=== PATIENT | female | born 1985 | race Caucasian/White ===

== ENCOUNTER 2017-02-03 10:23 | Emergency (ER) | payer SELFPAY ==
[~2017-02-03] VITALS: Ht 165.1 cm; Wt 70.3 kg
[2017-02-03 10:55] VITALS: BP 157/94
== END 2017-02-03 12:47 | disposition home or self-care (01) ==
LOC: ER 10:23
DX: K04.7 Periapical abscess without sinus (principal); F17.210 Nicotine dependence, cigarettes, uncomplicated

== ENCOUNTER 2017-03-28 17:11 | Inpatient (IN) | payer MEDICAID, OTHER ==
[~2017-03-28] VITALS: Ht 165.1 cm; Wt 74.2 kg
[2017-03-28 18:55] LABS: Basophils # (auto) 0 uL; Eosinophils # (auto) 0 uL; Lymphocytes # (auto) 0.6 uL; Mean Platelet Volume 8.8 fL (6.9-10.8); Neutrophils # (auto) 8.3 uL
[2017-03-28 18:57] LABS: Basophils % (auto) 0.4 % (0.0-2.0); Hematocrit 44.1 % (36.0-46.0); Hemoglobin 15.4 g/dL (12.2-16.2); Lymphocytes % (auto) 6.3 % (10.0-50.0); Mean Corpuscular Hemoglobin 35.7 pg (28.0-32.0); Mean Corpuscular Hgb Conc. 34.9 g/dL (32.0-36.0); Mean Corpuscular Volume 102.3 fL (80.0-100.0); Monocytes # (auto) 0.5 uL; Monocytes % (auto) 4.9 % (0.0-12.0); Neutrophils % (auto) 88.4 % (37.0-80.0); Nucleated Red Blood Cells % 0.5 %; Platelet Count (auto) 125 10^3/uL (140-450); Red Cell Distribution Width 12.1 % (11.8-14.3); White Blood Cell 9.4 10^3/uL (4.4-10.8)
[2017-03-28 19:12] LABS: Albumin 3.3 g/dL (3.4-5.0); BUN/Creatinine Ratio 15.1; Calcium 9.4 mg/dL (8.5-10.1); Potassium 4.2 mmol/L (3.5-5.1); Total Protein 8.5 g/dL (6.4-8.2)
[2017-03-28] MEDS ORDERED: SODIUM CHLORIDE 0.9% 1,000 ML IV ONE (20:11)
[2017-03-28] MEDS ORDERED: ONDANSETRON HCL 4 MG/2 ML VIAL IV ONE (20:15)
[2017-03-28] MEDS ORDERED: MORPHINE SULF INJ 2 MG/ML SYRINGE 1ML IV ONE (20:15)
[2017-03-28 22:36] LABS: Urine Blood Negative /uL (Negative); Urine Glucose Normal (Normal); Urine Ketone TRACE (Negative); Urine Mucus FEW (None Seen); Urine Nitrite Negative (Negative); Urine RBC 3 /hpf (0 - 4); Urine Squamous Epithelial Cell MOD /hpf (<5); Urine pH 6.5 (5.0-8.0)
[2017-03-28 22:44] LABS: Urine Bilirubin Negative (Negative); Urine Color AMBER (Yellow)
[2017-03-28] MEDS ORDERED: cefTRIAXone 1GM/50ML D5W 50 ML IV ONE (23:45)
[2017-03-29] MEDS: SODIUM CHLORIDE 0.9% 1,000 ML IV SCH ×3 (00:26→23:55)
[2017-03-29] MEDS: ONDANSETRON HCL 4 MG/2 ML VIAL IV PRN ×4 (00:34→20:30)
[2017-03-29] MEDS: MORPHINE SULF INJ 2 MG/ML SYRINGE 1ML IV PRN ×4 (00:34→13:10)
[2017-03-29] MEDS ORDERED: METH5TAB2 PO (04:07)
[2017-03-29 05:00] VITALS: BP 127/95
[2017-03-29 08:00] VITALS: BP 107/88
[2017-03-29 08:31] LABS: Basophils # (auto) 0 uL; Eosinophils # (auto) 0 uL; Red Cell Distribution Width 12.3 % (11.8-14.3)
[2017-03-29 08:32] LABS: Basophils % (auto) 0.2 % (0.0-2.0); Eosinophils % (auto) 0.9 % (0.0-7.0); Hematocrit 40.8 % (36.0-46.0); Lymphocytes # (auto) 0.9 uL; Lymphocytes % (auto) 17.7 % (10.0-50.0); Mean Corpuscular Hemoglobin 35.1 pg (28.0-32.0); Mean Corpuscular Hgb Conc. 34.3 g/dL (32.0-36.0); Mean Corpuscular Volume 102.4 fL (80.0-100.0); Monocytes # (auto) 0.3 uL; Neutrophils % (auto) 75.2 % (37.0-80.0); Nucleated Red Blood Cells % 0.9 %; Platelet Count (auto) 84 10^3/uL (140-450); White Blood Cell 5.3 10^3/uL (4.4-10.8)
[2017-03-29 08:59] LABS: Albumin 2.6 g/dL (3.4-5.0); BUN/Creatinine Ratio 21.7; Bilirubin, Total 1.4 mg/dL (0.2-1.0); Calcium 7.7 mg/dL (8.5-10.1); Potassium 3.5 mmol/L (3.5-5.1)
[2017-03-29 09:20] VITALS: BP 107/88
[2017-03-29 13:43] VITALS: BP 148/94
[2017-03-29] MEDS ORDERED: FAMOTIDINE 20 MG TAB PO ONE (15:30)
[2017-03-29 16:52] VITALS: BP 128/84
[2017-03-29] MEDS ORDERED: cefTRIAXone 1GM/50ML D5W 50 ML IV SCH (22:00)
[2017-03-29 22:29] VITALS: BP 123/84
[2017-03-30] VITALS (7 sets, daily range): BP systolic 98–147; BP diastolic 74–102
[2017-03-30 07:29] LABS: Albumin 2.3 g/dL (3.4-5.0); Bilirubin, Direct 0.8 mg/dL (0-0.2); Bilirubin, Total 1.3 mg/dL (0.2-1.0); Total Protein 6.5 g/dL (6.4-8.2)
[2017-03-30] MEDS: METHADONE HCL 10 MG TAB PO SCH (09:04)
[2017-03-30] MEDS: ONDANSETRON HCL 4 MG/2 ML VIAL IV PRN (09:09)
[2017-03-30] MEDS: SODIUM CHLORIDE 0.9% 1,000 ML IV SCH ×2 (09:09→21:19)
[2017-03-30] MEDS: FAMOTIDINE 20 MG TAB PO SCH (09:09)
[2017-03-31 05:00] VITALS: BP 147/90
[2017-03-31] MEDS: SODIUM CHLORIDE 0.9% 1,000 ML IV SCH (05:39)
[2017-03-31 06:47] LABS: Albumin 2.4 g/dL (3.4-5.0); BUN/Creatinine Ratio 11.4; Bilirubin, Total 1.3 mg/dL (0.2-1.0); Calcium 7.1 mg/dL (8.5-10.1); Potassium 3.2 mmol/L (3.5-5.1); Total Protein 6.8 g/dL (6.4-8.2)
[2017-03-31] MEDS: ONDANSETRON HCL 4 MG/2 ML VIAL IV PRN (07:58)
[2017-03-31] MEDS: METHADONE HCL 10 MG TAB PO SCH (07:59)
[2017-03-31 08:00] VITALS: BP 145/95
[2017-03-31 09:47] VITALS: BP 145/95
[2017-03-31] MEDS: FAMOTIDINE 20 MG TAB PO SCH (10:06)
[2017-03-31 13:11] VITALS: BP 137/92
== END 2017-03-31 14:15 | disposition home or self-care (01) | DRG 54 ==
LOC: ER 17:11 → OVERFLOW 17:12 → WEST WING 03-29 03:38
PROVIDERS: ADMIT Nurse Practitioner Family; ATTEND Internal Medicine
DX: G43.A1 Cyclical vomiting, in migraine, intractable (principal); R16.2 Hepatomegaly with splenomegaly, not elsewhere classified; K76.0 Fatty (change of) liver, not elsewhere classified; B19.20 Unspecified viral hepatitis C without hepatic coma; F19.90 Other psychoactive substance use, unspecified, uncomplicated; Z21 Asymptomatic human immunodeficiency virus [HIV] infection status; R79.89 Other specified abnormal findings of blood chemistry; F17.210 Nicotine dependence, cigarettes, uncomplicated; T39.315A Adverse effect of propionic acid derivatives, initial encounter; T39.1X5A Adverse effect of 4-Aminophenol derivatives, initial encounter; Y92.89 Other specified places as the place of occurrence of the external cause
CPT/HCPCS: 36415; 70490; 71010; 74176; 74181; 76705; 80053; 80076; 80307; 81001; 81025; 82150; 83690; 84702; 85025; 94761; 96361; 96374; 96375; J0696; J2405

== ENCOUNTER 2017-06-27 12:40 | Emergency (ER) | payer MEDICAID ==
[~2017-06-27 12:40] MED LIST: METH5TAB2 PO
== END 2017-06-27 12:50 | disposition left against medical advice (07) ==
LOC: ER 12:40
DX: I10 Essential (primary) hypertension (principal); Z53.21 Procedure and treatment not carried out due to patient leaving prior to being seen by health care provider